=== PATIENT | male | born 1980 | race African-American/Black ===

== ENCOUNTER 2022-01-10 10:04 | Observation (INO) | payer OTHER ==
[2022-01-10] MEDS ORDERED: ASPIRIN 325 MG TAB PO ONE ×2 (13:02→18:09)
[2022-01-10 13:26] LABS: Basophils # (Auto) 0.1 K/mm3 (0.0-0.1); Basophils % (Auto) 0.9 % (0.0-1.8); Eosinophils # (Auto) 0.2 K/mm3 (0.0-0.4); Eosinophils % (Auto) 2.5 % (0.0-4.3); Hematocrit 47.2 % (35.5-45.6); Hemoglobin 16.4 gm/dl (11.8-15.2); Lymphocytes # (Auto) 2.1 K/mm3 (1.2-5.4); Lymphocytes % (Auto) 24.8 % (13.4-35.0); Mean Corpuscular HGB Conc 35 % (32-34); Mean Corpuscular Volume 85 fl (84-94); Monocytes # (Auto) 0.7 K/mm3 (0.0-0.8); Monocytes % (Auto) 8.8 % (0.0-7.3); Platelet Count 220 K/mm3 (140-440); Red Blood Count 5.53 M/mm3 (3.65-5.03); Red Cell Distribution Width 13.7 % (13.2-15.2)
--- NOTE | 2022-01-10 13:44 | XRay Report ---
CHEST 1 VIEW 01/10/2022 12:31 PM INDICATION / CLINICAL INFORMATION: Chest Pain. COMPARISON: None available. FINDINGS: SUPPORT DEVICES: None. HEART / MEDIASTINUM: No significant abnormality. LUNGS / PLEURA: No significant pulmonary or pleural abnormality. No pneumothorax. ADDITIONAL FINDINGS: No significant additional findings. IMPRESSION: 1. No acute findings. Signer Name: Sergey Mota Jr, MD Signed: 01/10/2022 1:40 PM Workstation Name: [id number]
[2022-01-10 13:50] LABS: Alanine Aminotransferase 23 units/L (7-56); BUN/Creatinine Ratio 14; Blood Urea Nitrogen 13 mg/dL (9-20); Calcium 9.3 mg/dL (8.4-10.2); Hemolysis Index 5
--- NOTE | 2022-01-10 13:55 | Consultation ---
History of Present Illness Consult date: 01/10/22 Consult reason: chest pain History of present illness: The patient is a 41-year-old man with a history of gastroesophageal reflux, on Protonix. No prior cardiac history. He is referred to the hospital by his outpatient primary doctor and consulting nurse, for chest pain. He had reported some left upper chest pain to his PCP, an ECG done in the outpatients showed some nonspecific inferolateral T wave abnormalities, prompting a referral to the consulting nurse who recommended hospital admission and work-up. The patient's left upper chest pain has been intermittent for 4 to 6 months, is not reliably exertional, has no associated symptoms. There is no palpitations, no unusual shortness of breath and no edema. The left upper chest pain is distinct from his gastroesophageal reflux symptoms, and he had not felt compelled to have it worked up until now. Patient has no prior history of hypertension, but states on his recent outp atient clinic visit, his blood pressures were elevated. He is currently chest pain-free, in the emergency room, appears mildly anxious but no acute distress. EKG: Serial ECGs show sinus bradycardia, with voltage criteria for left ventricle hypertrophy, and nonspecific inferolateral T wave abnormality. Past History Past Medical History: GERD Medications and Allergies Active Meds: Active Medications Aspirin (Aspirin 325 Mg Tab) 325 mg PO ONCE ONE Stop: 01/10/22 13:03 Review of Systems Cardiovascular: chest pain, no orthopnea, no palpitations, no rapid/irregular heart beat, no edema, no syncope, no lightheadedness, no shortness of breath Physical Examination Vital Signs Temp Pulse BP Pulse Ox 98.7 F 47 L 121/68 96 01/10/22 10:42 01/10/22 10:42 01/10/22 10:42 01/10/22 10:42 General appearance: no acute distress HEENT: Positive: PERRL Neck: Positive: neck supple Cardiac: Positive: Reg Rate and Rhythm Lungs: Positive: clear to auscultation Neuro: Positive: Grossly Intact Abdomen: Positive: Soft Male genitourinary: Positive: deferred Skin: Positive: Clear Extremities: Absent: edema Results 01/10/22 13:20 01/10/22 13:20 Cardiac Enzymes 01/10/22 Range/Units 13:20 AST 18 (5-40) units/L CBC 01/10/22 Range/Units 13:20 WBC 8.4 (4.5-11.0) K/mm3 RBC 5.53 H (3.65-5.03) M/mm3 Hgb 16.4 H (11.8-15.2) gm/dl Hct 47.2 H (35.5-45.6) % Plt Count 220 (140-440) K/mm3 Lymph # (Auto) 2.1 (1.2-5.4) K/mm3 [place] # (Auto) 0.7 (0.0-0.8) K/mm3 Eos # (Auto) 0.2 (0.0-0.4) K/mm3 Baso # (Auto) 0.1 (0.0-0.1) K/mm3 Comprehensive Metabolic Panel 01/10/22 Range/Units 13:20 Sodium 138 (137-145) mmol/L Potassium 4.4 (3.6-5.0) mmol/L Chloride 101.1 (98-107) mmol/L Carbon Dioxide 28 (22-30) mmol/L BUN 13 (9-20) mg/dL Creatinine 0.9 (0.8-1.3) mg/dL Glucose 88 (75-100) mg/dL Calcium 9.3 (8.4-10.2) mg/dL AST 18 (5-40) units/L ALT 23 (7-56) units/L Alkaline Phosphatase 114 (35-129) units/L Total Protein 7.2 (6.3-8.2) g/dL Albumin 5.0 (3.9-5) g/dL EKG interpretations - Telemetry EKG Rhythm: Sinus Bradycardia (With nonspecific inferolateral T wave abnormality) Assessment and Plan - Patient Problems (1) Chest pain Status: Acute Plan to address problem: 41-year-old man who is admitted with atypical chest pain and abnormal EKG with nonspecific inferolateral T wave inversions, we will admit for overnight observation, recommended for invasive cardiac assessment of chest pain and abnormal EKG. Risks and benefits of cardiac catheterization and coronary geography discussed with patient and his spouse. He consents to proceed. Cardiac catheterization will be ordered for tomorrow morning.
[2022-01-10 14:14] LABS: Amphetamine Screen,Urine Negative; Benzodiazepines Screen,Urine Negative; Cannabinoid Screen,Urine Negative; Cocaine Screen,Urine Negative; Methadone Screen,Urine Negative; Opiate Screen,Urine Negative
[2022-01-10 14:23] LABS: Color,Urine Straw (Yellow)
--- NOTE | 2022-01-10 16:47 | Emergency Department Report ---
ED Chest Pain HPI - General Chief Complaint: Chest Pain Stated Complaint: CHEST PAIN/ABNORMAL PUI?: No Time Seen by Provider: 01/10/22 12:57 Source: patient Mode of arrival: Ambulatory Limitations: Language Barrier - History of Present Illness Initial Comments: josué present to ED with c/o chest pain, and abnormal EKG. Patient sent by pcp. pain non exertional , on and off for the last 6 months -: Gradual, month(s) Pain Radiation: none Quality: aching Consistency: intermittent Worsens With: nothing Treatments Prior to Arrival: none - Related Data Allergies Allergy/AdvReac Type Severity Reaction Status Date / Time No Known Allergies Allergy Verified 01/10/22 14:46 Heart Score - HEART Score History: Moderately suspicious EKG: Non-specific Age: < 45 Risk factors: No known risk factors Troponin: < normal limit HEART Score: 2 - EKG Read Time Time EKG Completed: 16:44 EKG Read Time: 16:44 - Critical Actions Critical Actions: 0-3 pts:0.9-1.7%risk of adverse cardiac event.Candidate for discharge ED Review of Systems ROS: Stated complaint: CHEST PAIN/ABNORMAL Other details as noted in HPI Constitutional: denies: chills, fever Eyes: denies: eye pain, eye discharge, vision change ENT: denies: ear pain, throat pain Respiratory: denies: cough, shortness of breath, wheezing Cardiovascular: denies: chest pain, palpitations Endocrine: no symptoms reported Gastrointestinal: denies: abdominal pain, nausea, diarrhea Genitourinary: denies: urgency, dysuria Musculoskeletal: denies: back pain, joint swelling, arthralgia Skin: denies: rash, lesions Neurological: denies: headache, weakness, paresthesias Psychiatric: denies: anxiety, depression Hematological/Lymphatic: denies: easy bleeding, easy bruising ED Past Medical Hx - Past Medical History Previous Medical History?: No Hx Hypertension: No Hx GERD: Yes ED Physical Exam - General Limitations: No Limitations General appearance: alert, in no apparent distress - Head Head exam: Present: atraumatic, normocephalic - Eye Eye exam: Present: normal appearance - ENT ENT exam: Present: mucous membranes moist - Neck Neck exam: Present: normal inspection - Respiratory Respiratory exam: Present: normal lung sounds bilaterally. Absent: respiratory distress - Cardiovascular Cardiovascular Exam: Present: regular rate, normal rhythm. Absent: systolic murmur, diastolic murmur, rubs, gallop - GI/Abdominal GI/Abdominal exam: Present: soft, normal bowel sounds - Rectal Rectal exam: Present: deferred - Extremities Exam Extremities exam: Present: normal inspection - Back Exam Back exam: Present: normal inspection - Neurological Exam Neurological exam: Present: alert, oriented X3 - Psychiatric Psychiatric exam: Present: normal affect, normal mood - Skin Skin exam: Present: warm, dry, intact, normal color. Absent: rash ED Course Vital Signs 01/10/22 01/10/22 01/10/22 10:42 13:02 13:52 Temperature 98.7 F Pulse Rate 47 L 49 L Respiratory 16 Rate Blood Pressure Blood Pressure 121/68 [Left] O2 Sat by Pulse 96 100 95 Oximetry 01/10/22 01/10/22 01/10/22 14:01 14:15 14:31 Temperature Pulse Rate 50 L 48 L 50 L Respiratory 16 14 15 Rate Blood Pressure Blood Pressure [Left] O2 Sat by Pulse 95 94 95 Oximetry 01/10/22 01/10/22 01/10/22 14:45 15:01 15:15 Temperature Pulse Rate 51 L 49 L 49 L Respiratory 13 14 14 Rate Blood Pressure 116/64 116/64 116/64 Blood Pressure [Left] O2 Sat by Pulse 94 94 92 Oximetry 01/10/22 01/10/22 01/10/22 15:31 15:45 16:01 Temperature Pulse Rate 48 L 58 L 51 L Respiratory 14 17 18 Rate Blood Pressure 116/64 124/73 124/73 Blood Pressure [Left] O2 Sat by Pulse 90 94 95 Oximetry 01/10/22 01/10/22 16:15 16:31 Temperature Pulse Rate 52 L 48 L Respiratory 16 17 Rate Blood Pressure 124/73 124/73 Blood Pressure [Left] O2 Sat by Pulse 96 92 Oximetry SOURAV score - Sourav Score Age > 65: (0) No Aspirin use within the Past 7 Days: (0) No 3 or more CAD Risk Factors: (0) No 2 or more Angina events in past 24 hrs: (0) No Known CAD with more than 50% Stenosis: (0) No Elevated Cardiac Markers: (0) No ST Deviation Greater than 0.5mm: (0) No SOURAV Score: 0 ED Medical Decision Making - Lab Data Result diagrams: 01/10/22 13:20 08/25/22 13:20 Critical care attestation.: If time is entered above; I have spent that time in minutes in the direct care of this critically ill patient, excluding procedure time. ED Disposition Clinical Impression: Chest pain Disposition: ADMITTED INPATIENT Is pt being admited?: Yes Does the pt Need Aspirin: Yes Condition: Stable Instructions: Nonspecific Chest Pain, Adult
[2022-01-10] MEDS: SODIUM CHLORIDE 0.9% 500 ML 500 ML IV SCH (17:32)
[2022-01-10] MEDS ORDERED: ONDANSETRON 4 MG/2 ML INJ IV PRN (18:33)
[2022-01-10] MEDS ORDERED: oxyCODONE /ACETAMINOPHEN 5-325MG TAB PO PRN (18:33)
[2022-01-10] MEDS ORDERED: ACETAMINOPHEN 325 MG TAB PO PRN (18:33)
--- NOTE | 2022-01-10 18:37 | History and Physical Report ---
History of Present Illness Date of examination: 01/10/22 Date of admission: 01/10/2022 Chief complaint: Chest pain for 6 months History of present illness: 41-year-old male with history of hypertension and GERD comes in for chest pain of 6 months duration. Chest pain is intermittent. 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 Chest pain is intermittent. Related to exertion. Patient had outpatient work-up which was negative for ischemia. Chest pain on exertion. Relieved by rest. Also shortness of breath. No radiation of the chest pain. No nausea. No diaphoresis. Heart Score - HEART Score History: Moderately suspicious EKG: Non-specific Age: < 45 Risk factors: No known risk factors Troponin: < normal limit HEART Score: 2 - EKG Read Time Time EKG Completed: 16:44 EKG Read Time: 16:44 - Critical Actions Critical Actions: 0-3 pts:0.9-1.7%risk of adverse cardiac event.Candidate for discharge - Past Medical History --Previous Medical History?: No --Hypertension: No --GERD: Yes - past surgical history --No - Family history --Htn -Social history -- no smoking or alcohol. Review of Systems ROS: Stated complaint: CHEST PAIN/ABNORMAL Other details as noted in HPI Constitutional: denies: chills, fever Eyes: denies: eye pain, eye discharge, vision change ENT: denies: ear pain, throat pain Respiratory: denies: cough, shortness of breath, wheezing Cardiovascular: denies: chest pain, palpitations Endocrine: no symptoms reported Gastrointestinal: denies: abdominal pain, nausea, diarrhea Genitourinary: denies: urgency, dysuria Musculoskeletal: denies: back pain, joint swelling, arthralgia Skin: denies: rash, lesions Neurological: denies: headache, weakness, paresthesias Psychiatric: denies: anxiety, depression Hematological/Lymphatic: denies: easy bleeding, easy bruising Past History Past Medical History: GERD Medications and Allergies Allergies Allergy/AdvReac Type Severity Reaction Status Date / Time No Known Allergies Allergy Verified 01/10/22 14:46 Active Meds: Active Medications Aspirin (Aspirin Ec 325 Mg Tab) 81 mg PO QDAY ALCIDES Sodium Chloride (Nacl 0.9% 500 Ml) 500 mls @ 50 mls/hr IV DIRECT ALCIDES Stop: 01/10/22 23:59 Exam - Constitutional Vitals: Temp Pulse Resp BP Pulse Ox 98.7 F 47 L 17 113/62 93 01/10/22 10:42 01/10/22 18:01 01/10/22 18:01 01/10/22 18:01 01/10/22 18:01 General appearance: Present: no acute distress, well-nourished - EENT Eyes: Present: PERRL ENT: hearing intact, clear oral mucosa - Neck Neck: Present: supple, normal ROM - Respiratory Respiratory effort: normal Respiratory: bilateral: CTA - Cardiovascular Heart rate: 78 Rhythm: regular Heart Sounds: Present: S1 & S2. Absent: rub, click - Extremities Extremities: pulses symmetrical, No edema Peripheral Pulses: within normal limits - Abdominal General gastrointestinal: Present: soft, non-tender, non-distended, normal bowel sounds Male genitourinary: Present: normal - Integumentary Integumentary: Present: clear, warm, dry - Musculoskeletal Musculoskeletal: gait normal, strength equal bilaterally - Psychiatric Psychiatric: appropriate mood/affect, intact judgment & insight - Neurologic Neurologic: CNII-XII intact, moves all extremities HEART Score - HEART Score EKG: Non-specific Age: < 45 Risk factors: No known risk factors Troponin: Troponin T < 0.010 ng/mL (0.00-0.029) 01/10/22 13:20 Troponin: < normal limit - Critical Actions Critical Actions: 0-3 pts:0.9-1.7%risk of adverse cardiac event.Candidate for discharge Results - Labs CBC & Chem 7: 01/11/22 04:48 01/11/22 04:48 Labs: Laboratory Last Values WBC 8.4 K/mm3 (4.5-11.0) 01/10/22 13:20 RBC 5.53 M/mm3 (3.65-5.03) H 01/10/22 13:20 Hgb 16.4 gm/dl (11.8-15.2) H 01/10/22 13:20 Hct 47.2 % (35.5-45.6) H 01/10/22 13:20 MCV 85 fl (84-94) 01/10/22 13:20 MCH 30 pg (28-32) 01/10/22 13:20 MCHC 35 % (32-34) H 01/10/22 13:20 RDW 13.7 % (13.2-15.2) 01/10/22 13:20 Plt Count 220 K/mm3 (140-440) 01/10/22 13:20 Lymph % (Auto) 24.8 % (13.4-35.0) 01/10/22 13:20 [place] % (Auto) 8.8 % (0.0-7.3) H 01/10/22 13:20 Eos % (Auto) 2.5 % (0.0-4.3) 01/10/22 13:20 Baso % (Auto) 0.9 % (0.0-1.8) 01/10/22 13:20 Lymph # (Auto) 2.1 K/mm3 (1.2-5.4) 01/10/22 13:20 [place] # (Auto) 0.7 K/mm3 (0.0-0.8) 01/10/22 13:20 Eos # (Auto) 0.2 K/mm3 (0.0-0.4) 01/10/22 13:20 Baso # (Auto) 0.1 K/mm3 (0.0-0.1) 01/10/22 13:20 Seg Neutrophils % 63.0 % (40.0-70.0) 01/10/22 13:20 Seg Neutrophils # 5.3 K/mm3 (1.8-7.7) 01/10/22 13:20 Sodium 138 mmol/L (137-145) 01/10/22 13:20 Potassium 4.4 mmol/L (3.6-5.0) 01/10/22 13:20 Chloride 101.1 mmol/L (98-107) 01/10/22 13:20 Carbon Dioxide 28 mmol/L (22-30) 01/10/22 13:20 Anion Gap 13 mmol/L 01/10/22 13:20 BUN 13 mg/dL (9-20) 01/10/22 13:20 Creatinine 0.9 mg/dL (0.8-1.3) 01/10/22 13:20 Estimated GFR > 60 ml/min 01/10/22 13:20 BUN/Creatinine Ratio 14 % 01/10/22 13:20 Glucose 88 mg/dL (75-100) 01/10/22 13:20 Calcium 9.3 mg/dL (8.4-10.2) 01/10/22 13:20 Total Bilirubin 0.30 mg/dL (0.1-1.2) 01/10/22 13:20 AST 18 units/L (5-40) 01/10/22 13:20 ALT 23 units/L (7-56) 01/10/22 13:20 Alkaline Phosphatase 114 units/L (35-129) 01/10/22 13:20 Troponin T < 0.010 ng/mL (0.00-0.029) 01/10/22 13:20 Total Protein 7.2 g/dL (6.3-8.2) 01/10/22 13:20 Albumin 5.0 g/dL (3.9-5) 01/10/22 13:20 Albumin/Globulin Ratio 2.3 % 01/10/22 13:20 Lipase 30 units/L (13-60) 01/10/22 13:20 Urine Color Straw (Yellow) 01/10/22 13:39 Urine Turbidity Clear (Clear) 01/10/22 13:39 Specific [place] (Man) 1.015 (1.003-1.030) 01/10/22 13:39 Ur Protein (Man) Negative mg/dL (Negative) 01/10/22 13:39 Ur Ketones (Man) Negative (Negative) 01/10/22 13:39 Ur Nitrite (Man) Negative (Negative) 01/10/22 13:39 Ur Reducing Substances Not Reportable 01/10/22 13:39 Urine Bilirubin (Man) Negative (Negative) 01/10/22 13:39 Leukocyte Esterase (Man) Negative (Negative) 01/10/22 13:39 Urine WBC (Auto) 1.0 /HPF (0.0-6.0) 01/10/22 13:39 Urine RBC (Auto) 1.0 /HPF (0.0-6.0) 01/10/22 13:39 U Epithel Cells (Auto) 1.0 /HPF (0-13.0) 01/10/22 13:39 Urine RBC (Manual) Negative (Negative) 01/10/22 13:39 Urine Opiates Screen Negative 01/10/22 13:39 Urine Methadone Screen Negative 01/10/22 13:39 Ur Barbiturates Screen Negative 01/10/22 13:39 Ur Phencyclidine Scrn Negative 01/10/22 13:39 Ur Amphetamines Screen Negative 01/10/22 13:39 U Benzodiazepines Scrn Negative 01/10/22 13:39 Urine Cocaine Screen Negative 01/10/22 13:39 U Marijuana (THC) Screen Negative 01/10/22 13:39 Drugs of Abuse Note Disclamer 01/10/22 13:39 Short CBC 01/10/22 01/11/22 Range/Units 13:20 04:48 WBC 8.4 8.2 (4.5-11.0) K/mm3 Hgb 16.4 H 15.8 H (11.8-15.2) gm/dl Hct 47.2 H 46.5 H (35.5-45.6) % Plt Count 220 220 (140-440) K/mm3 BMP 01/10/22 01/11/22 13:20 04:48 Sodium 138 140 Potassium 4.4 4.4 Chloride 101.1 104.7 Carbon Dioxide 28 25 BUN 13 16 Creatinine 0.9 0.9 Glucose 88 103 H Calcium 9.3 9.3 Cardiac Enzymes 01/10/22 01/10/22 01/11/22 Range/Units 13:20 19:08 00:27 Troponin T < 0.010 < 0.010 < 0.010 (0.00-0.029) ng/mL Liver Function 01/10/22 01/11/22 Range/Units 13:20 04:48 Total Bilirubin 0.30 0.50 (0.1-1.2) mg/dL AST 18 20 (5-40) units/L ALT 23 24 (7-56) units/L Alkaline Phosphatase 114 107 (35-129) units/L Albumin 5.0 4.4 (3.9-5) g/dL Urine 01/10/22 Range/Units 13:39 Urine Color Straw (Yellow) - Imaging and Cardiology EKG: report reviewed (T wave inversions in inferior leads and lateral leads.) Chest x-ray: report reviewed (No acute findings.) Imaging and Cardiology: Chest x-ray No acute findings. Assessment and Plan Advance Directives: Yes (Full code) VTE prophylaxis?: Chemical Plan of care discussed with patient/family: Yes - Patient Problems (1) Acute coronary syndrome Current Visit: Yes Status: Acute Plan to address problem: Serial troponins Cardiology consult Possible cath in a.m. (2) Hypertension Current Visit: Yes Status: Chronic Qualifiers: Hypertension type: primary hypertension Qualified Code(s): I10 - Essential (primary) hypertension Plan to address problem: Continue antihypertensives and adjust medications as necessary (3) DVT prophylaxis Current Visit: Yes Status: Acute Plan to address problem: On anticoagulation GI prophylaxis (4) Advance care planning Current Visit: Yes Status: Acute Plan to address problem: Disease education conducted, care plan discussed, diagnosis discussed and prognosis discussed. Patient acknowledged understanding with care plan. Care plan +30 minutes. Patient is full code.
[2022-01-10] MEDS: FAMOTIDINE 20 MG/2 ML INJ IV SCH (21:52)
[2022-01-10] MEDS: HEPARIN 5,000 UNIT/1 ML VIAL SUB-Q SCH (21:53)
[2022-01-11 05:11] LABS: Basophils # (Auto) 0.1 K/mm3 (0.0-0.1); Basophils % (Auto) 0.7 % (0.0-1.8); Eosinophils # (Auto) 0.2 K/mm3 (0.0-0.4); Eosinophils % (Auto) 2.3 % (0.0-4.3); Hematocrit 46.5 % (35.5-45.6); Hemoglobin 15.8 gm/dl (11.8-15.2); Lymphocytes # (Auto) 2.3 K/mm3 (1.2-5.4); Lymphocytes % (Auto) 27.5 % (13.4-35.0); Mean Corpuscular HGB Conc 34 % (32-34); Mean Corpuscular Volume 88 fl (84-94); Monocytes # (Auto) 0.8 K/mm3 (0.0-0.8); Monocytes % (Auto) 9.4 % (0.0-7.3); Platelet Count 220 K/mm3 (140-440); Red Blood Count 5.31 M/mm3 (3.65-5.03); Red Cell Distribution Width 13.2 % (13.2-15.2)
[2022-01-11 05:35] LABS: Alanine Aminotransferase 24 units/L (7-56); Albumin 4.4 g/dL (3.9-5); BUN/Creatinine Ratio 18; Blood Urea Nitrogen 16 mg/dL (9-20); Calcium 9.3 mg/dL (8.4-10.2); Hemolysis Index 26
[2022-01-11 07:51] LABS: INR 0.94 (0.87-1.13)
[2022-01-11 07:52] LABS: Partial Thromboplastin Time 33.2 Sec. (24.2-36.6)
[2022-01-11] MEDS ORDERED: HEPARIN/NS 5000 UNIT/500ML 1,000 ML IR ONE (08:06)
[2022-01-11] MEDS: fentaNYL 100 MCG/2 ML INJ ONE ×2 (08:15→09:26)
[2022-01-11] MEDS: VERAPAMIL 5 MG/2 ML INJ ONE ×2 (08:15→09:28)
[2022-01-11] MEDS: MIDAZOLAM 2 MG/2 ML INJ ONE ×2 (08:15→09:26)
[2022-01-11] MEDS: LIDOCAINE (1%) 10 MG/1 ML VIAL 20 ML MDV ONE ×2 (08:15→09:26)
[2022-01-11] MEDS: NITROGLYCERIN SYRINGE 3 ML ONE ×2 (08:16→09:28)
[2022-01-11] MEDS: HEPARIN 10,000 UNITS/10 ML VIAL ONE ×2 (08:16→09:28)
[2022-01-11] MEDS: SODIUM CHLORIDE 0.9% 500 ML 500 ML IV SCH (08:17)
[2022-01-11] MEDS ORDERED: SODIUM CHLORIDE 0.9% 1000 ML 1,000 ML ONE (09:06)
--- NOTE | 2022-01-11 09:56 | Progress Note ---
Assessment and Plan - Patient Problems (1) Chest pain Current Visit: No Status: Acute Subjective Date of service: 01/11/22 Principal diagnosis: Chest pain Interval history: Cardiac catheterization done today reveals essentially angiographically near normal coronary arteries. Left ventricular systolic function at the lower limits of normal, ejection fraction 50%. We note that patient has had a persistent asymptomatic sinus bradycardia with mean heart rate in the high 40s to low 50s. Recommendations: Patient is stable for cardiac discharge, no further ischemic work-up is indicated. I will order a TSH level, which should be checked before discharge. Objective Vital Signs Temp Pulse Resp BP BP Pulse Ox 01/11/22 08:10 97 01/11/22 07:56 98.0 F 48 L 16 126/65 92 01/11/22 04:24 98.2 F 54 L 18 112/55 94 01/10/22 23:36 98.0 F 49 L 18 113/61 95 01/10/22 23:12 45 L 01/10/22 22:20 98 01/10/22 22:00 99 01/10/22 21:46 98.3 F 53 L 18 128/69 95 01/10/22 21:21 53 L 19 127/58 92 01/10/22 21:15 54 L 18 127/58 90 01/10/22 21:01 53 L 16 127/58 94 01/10/22 20:45 54 L 20 127/58 92 01/10/22 20:31 54 L 19 127/58 94 01/10/22 20:15 53 L 20 127/58 93 01/10/22 20:01 69 19 127/58 94 01/10/22 19:45 54 L 18 127/58 91 01/10/22 19:31 53 L 17 127/58 90 01/10/22 19:15 53 L 18 127/58 91 01/10/22 19:01 56 L 16 127/58 91 01/10/22 18:45 56 L 14 113/62 92 01/10/22 18:31 57 L 12 113/62 95 01/10/22 18:15 50 L 18 113/62 93 01/10/22 18:01 47 L 17 113/62 93 01/10/22 17:45 61 15 127/58 92 01/10/22 17:31 62 13 127/58 93 01/10/22 17:16 51 L 16 113/62 94 01/10/22 17:01 51 L 17 124/73 94 01/10/22 16:45 50 L 17 113/62 94 01/10/22 16:31 48 L 17 124/73 92 01/10/22 16:15 52 L 16 124/73 96 01/10/22 16:01 51 L 18 124/73 95 01/10/22 15:45 58 L 17 124/73 94 01/10/22 15:31 48 L 14 116/64 90 01/10/22 15:15 49 L 14 116/64 92 01/10/22 15:01 49 L 14 116/64 94 01/10/22 14:45 51 L 13 116/64 94 01/10/22 14:31 50 L 15 95 01/10/22 14:15 48 L 14 94 01/10/22 14:01 50 L 16 95 01/10/22 13:52 49 L 16 95 01/10/22 13:02 100 01/10/22 10:42 98.7 F 47 L 121/68 96 - Physical Examination HEENT: Positive: PERRL Neck: Positive: neck supple Neuro: Positive: Grossly Intact Abdomen: Positive: Soft Skin: Positive: Clear Extremities: Absent: edema - Labs and Meds Cardiac Enzymes 01/10/22 01/11/22 Range/Units 13:20 04:48 AST 18 20 (5-40) units/L Coagulation 01/11/22 Range/Units 07:25 PT 13.6 (12.2-14.9) Sec. INR 0.94 (0.87-1.13) APTT 33.2 (24.2-36.6) Sec. CBC 01/10/22 01/11/22 Range/Units 13:20 04:48 WBC 8.4 8.2 (4.5-11.0) K/mm3 RBC 5.53 H 5.31 H (3.65-5.03) M/mm3 Hgb 16.4 H 15.8 H (11.8-15.2) gm/dl Hct 47.2 H 46.5 H (35.5-45.6) % Plt Count 220 220 (140-440) K/mm3 Lymph # (Auto) 2.1 2.3 (1.2-5.4) K/mm3 [place] # (Auto) 0.7 0.8 (0.0-0.8) K/mm3 Eos # (Auto) 0.2 0.2 (0.0-0.4) K/mm3 Baso # (Auto) 0.1 0.1 (0.0-0.1) K/mm3 Comprehensive Metabolic Panel 01/10/22 01/11/22 Range/Units 13:20 04:48 Sodium 138 140 (137-145) mmol/L Potassium 4.4 4.4 (3.6-5.0) mmol/L Chloride 101.1 104.7 (98-107) mmol/L Carbon Dioxide 28 25 (22-30) mmol/L BUN 13 16 (9-20) mg/dL Creatinine 0.9 0.9 (0.8-1.3) mg/dL Glucose 88 103 H (75-100) mg/dL Calcium 9.3 9.3 (8.4-10.2) mg/dL AST 18 20 (5-40) units/L ALT 23 24 (7-56) units/L Alkaline Phosphatase 114 107 (35-129) units/L Total Protein 7.2 6.7 (6.3-8.2) g/dL Albumin 5.0 4.4 (3.9-5) g/dL - Imaging and Cardiology EKG: report reviewed (T wave inversions in inferior leads and lateral leads.)
[2022-01-11] MEDS ORDERED: ASPIRIN EC 81 MG TAB PO SCH (10:00)
--- NOTE | 2022-01-11 10:28 | Cardiac Catherization Report ---
DATE OF SERVICE: 01/11/2022 CARDIAC CATHETERIZATION REASON FOR PROCEDURE: The patient is a 41-year-old man referred by his primary engraver for cardiac catheterization, due to development of chest pain and an abnormal EKG. PROCEDURES: 1. Left heart catheterization. 2. Selective left and right coronary angiography. 3. Left ventricular angiography. 4. Sedation time start 923, end 939. DESCRIPTION OF PROCEDURE: The patient was prepped and draped in a sterile fashion after informed consent. The right radial cath site was prepped and draped after negative Robi's test. The right radial artery was entered using Seldinger technique followed by placement of a 6-[place] hydrophilic sheath. Routine radial cocktail was administered via the sheath. Selective left and right coronary angiography was performed using a #3.5 left George and a #4 right George. The pigtail catheter was used for left ventricular angiography. The catheters were then removed, sheath removed. Hemostasis achieved using a TR band. The patient was returned to the postprocedure unit in stable condition. There were no complications. FINDINGS: HEMODYNAMICS: Left ventricular end-diastolic pressure was 15, following coronary angiography. Ascending aortic pressure was 115/80. There was no significant pressure gradient on pullback across the aortic valve. CORONARY ANGIOGRAPHY: Left main coronary artery was angiographically normal. There was mild luminal narrowing of the mid LAD, otherwise this vessel and its diagonal branches were free of significant disease. The circumflex artery was dominant. This vessel, its obtuse marginal branches and the left posterior descending branch were free of significant disease. The right coronary artery was small, nondominant and angiographically normal. Left ventricular systolic function was at lower limits of normal with estimated ejection fraction 50%. CONCLUSION: 1. No significant coronary artery disease, coronary anatomy as described above. 2. Left ventricular systolic function at the lower limits of normal, ejection fraction 50%. RECOMMENDATIONS: Risk factor modification and medical therapy. TID: [id number] RECEIPT: [id number] CARMENCITA/ANALI/HOPE
[2022-01-11] MEDS ORDERED: SODIUM CHLORIDE 0.9% 1000 ML 1,000 ML IV SCH (10:30)
--- NOTE | 2022-01-11 10:35 | Electrocardiograph Report ---
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
--- NOTE | 2022-01-11 10:40 | Electrocardiograph Report ---
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
[2022-01-11] MEDS ORDERED: traMADol 50 MG TAB PO PRN (11:00)
[2022-01-11] MEDS: HEPARIN 5,000 UNIT/1 ML VIAL SUB-Q SCH (11:32)
[2022-01-11] MEDS: FAMOTIDINE 20 MG/2 ML INJ IV SCH (11:33)
[2022-01-11 11:35] LABS: Free T4 (Free Thyroxine) 1.25 ng/dL (0.76-1.46)
[2022-01-11 12:30] VITALS: BP 125/86
--- NOTE | 2022-01-11 15:06 | Discharge Summary ---
Providers - Providers Date of Admission: 01/10/22 18:33 Date of discharge: 01/11/22 Attending physician: LCARIBEL HARVEY 01/10/22 18:33 Consult to Physician [CONS] Routine Comment: Consulting Provider: UMESH RAMON Physician Instructions: Reason For Exam: ACS Primary care physician: ERIC MCRAE Hospitalization Condition: Stable Hospital course: 41-year-old male with history of hypertension and GERD comes in for chest pain of 6 months duration. Chest pain is intermittent. 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 Chest pain is intermittent. Related to exertion. Patient had outpatient work-up which was negative for ischemia. Chest pain on exertion. Relieved by rest. Also shortness of breath. No radiation of the chest pain. No nausea. No diaphoresis. Assessment and Plan Advance Directives: Yes (Full code) VTE prophylaxis?: Chemical Plan of care discussed with patient/family: Yes - Patient Problems (1) Acute coronary syndrome Current Visit: Yes Status: Acute Plan to address problem: Serial troponins Cardiology consult Appreciated Cardiac cath was done this morning which was normal. Ejection fraction is 50% (2) Hypertension Current Visit: Yes Status: Chronic Qualifiers: Hypertension type: primary hypertension Qualified Code(s): I10 - Essential (primary) hypertension Plan to address problem: Continue antihypertensives and adjust medications as necessary (3) sinus bradycardia No contributory etiology TSH was slightly above normal We will discharge the patient on Synthroid 25 mcg daily T4 was normal (4) Advance care planning Current Visit: Yes Status: Acute Plan to address problem: Disease education conducted, care plan discussed, diagnosis discussed and prognosis discussed. Patient acknowledged understanding with care plan. Care plan +30 minutes. Patient is full code. Disposition: 01 HOME / SELF CARE / HOMELESS Final Discharge Diagnosis (Prints w/discharge instructions): Acute coronary syndrome. Hypertension. Sinus bradycardia Time spent for discharge: 35 minutes - Discharge Diagnoses (1) Acute coronary syndrome Status: Acute (2) Hypertension Status: Chronic Qualifiers: Hypertension type: primary hypertension Qualified Code(s): I10 - Essential (primary) hypertension (3) DVT prophylaxis Status: Acute (4) Advance care planning Status: Acute Core Measure Documentation - Palliative Care Palliative Care/ Comfort Measures: Not Applicable - Core Measures Any of the following diagnoses?: none Exam - Constitutional Vitals: Temp Pulse Resp BP Pulse Ox 97.7 F 49 L 18 125/86 97 01/11/22 11:15 01/11/22 12:15 01/11/22 12:15 01/11/22 12:15 01/11/22 12:15 General appearance: Present: no acute distress, well-nourished - EENT Eyes: Present: PERRL ENT: hearing intact, clear oral mucosa - Neck Neck: Present: supple, normal ROM - Respiratory Respiratory effort: normal Respiratory: bilateral: CTA - Cardiovascular Rhythm: regular (54) Heart Sounds: Present: S1 & S2. Absent: rub, click - Extremities Extremities: pulses symmetrical, No edema Peripheral Pulses: within normal limits - Abdominal General gastrointestinal: Present: soft, non-tender, non-distended, normal bowel sounds Male genitourinary: Present: normal - Integumentary Integumentary: Present: clear, warm, dry - Musculoskeletal Musculoskeletal: gait normal, strength equal bilaterally - Psychiatric Psychiatric: appropriate mood/affect, intact judgment & insight - Neurologic Neurologic: CNII-XII intact, moves all extremities Plan Activity: no restrictions Diet: low salt Follow up with: ERIC MCRAE MD [Primary Care Provider] - 7 Days UMESH RAMON MD [Staff Physician] - 7 Days
== END 2022-01-11 17:04 | disposition home or self-care (01) ==
LOC: ED 10:04 → 4A 18:33 → INTOOBSV 18:33
PROVIDERS: ADMIT Internal Medicine; ATTEND Internal Medicine
DX: I24.9 Acute ischemic heart disease, unspecified (principal); I10 Essential (primary) hypertension; K21.9 Gastro-esophageal reflux disease without esophagitis; R07.89 Other chest pain; Z79.899 Other long term (current) drug therapy; Z98.890 Other specified postprocedural states
CPT/HCPCS: 36415; 71045; 80053; 80307; 81001; 82962; 83690; 84439; 84443; 84484; 85025; 85610; 85730; 93005; 93458; 96372; 96374; 96376; 99285; C1894; G0378; J1644; J1815; J2250; J3010; J3490; J7040; J7030; Q9967